=== PATIENT | male | born 1960 | race Caucasian/White ===

== ENCOUNTER 2021-02-09 09:35 | Emergency (ER) | payer OTHER ==
[~2021-02-09 09:35] MED LIST: ASPIRIN CHEWABL81 MG PO; DILTIAZEM 12HR90 MG PO; FENOFIBRATE40 MG PO; FEOSOL325 MG PO; FLOMAX0.4 MG PO; LISINOPRIL-HCT1 EAC2 PO; OXYCODONE-ACET1 EAC1 PO; PERCOCET 7.5/321 TAB PO; PRAVASTATIN SOD80 MG PO; PRILOSEC20 MG PO; ULTRA-LIGHT RO1 EACH XX; XARELTO10 MG PO
[2021-02-09] MEDS ORDERED: DIOVAN40 MG PO (09:59)
[2021-02-09 10:31] LABS: BASOPHIL 0.2 % (0-2); EOSINOPHIL 0.1 % (0-5); HCT 40.7 % (42.0-52.0); HGB 14.1 g/dl (13.2-18.0); LYMPHOCYTE 4.6 % (15-48); MCH 29.6 pg (25.0-31.0); MCHC 34.6 g/dL (32.0-36.0); MCV 85.3 fL (78.0-100.0); MONOCYTE 8.1 % (0-12); MPV 11.9 fL (6.0-9.5); NEUTROPHIL 84.3 % (41-80); NRBC 0.8; PLT 121 K/uL (150-400); RBC 4.77 M/uL (4.70-6.00); RDW 20.7 % (11.5-14.0); WBC 16.8 K/uL (4.0-10.5)
[2021-02-09 10:35] LABS: INR 1.6 (0.9-1.2); PROTHROMBIN TIME 18.1 SECONDS (11.4-13.6)
[2021-02-09 10:36] LABS: PTT 41.7 SECONDS (22.2-34.7)
[2021-02-09 10:47] LABS: ALBUMIN 2.3 g/dL (3.4-5.0); BUN/CREAT RATIO (CALC) 52.2 RATIO; CREATININE 0.69 mg/dL (0.67-1.17); GLOBULIN (CALCULATION) 3.3 g/dL; MAGNESIUM 1.6 mg/dL (1.8-2.4); POTASSIUM 3.5 mmol/L (3.5-5.1); TOTAL PROTEIN 5.6 g/dL (6.4-8.2)
[2021-02-09 10:48] LABS: BILIRUBIN - TOTAL 17.5 mg/dL (0.2-1.0)
[2021-02-09 17:13] LABS: BILIRUBIN 3+ mg/dL (NEGATIVE); BLOOD NEGATIVE Ery/uL (NEGATIVE); CLARITY SLIGHTLY HAZY (CLEAR); COLOR AMBER (YELLOW); GLUCOSE (U) TRACE mg/dL (NORMAL); LEUKOCYTES NEGATIVE Leu/uL (NEGATIVE); NITRITE POSITIVE (NEGATIVE); PROTEIN TRACE (LOW) mg/dL (NEGATIVE); pH 6.5 (5.0-9.0)
[2021-02-09 17:21] LABS: BACTERIA TRACE; URINARY WBC RARE
[2021-02-09 17:22] LABS: AMMONIUM BUIRATE CRYSTALS LARGE
== END 2021-02-09 21:00 | disposition other institution (70) ==
LOC: FER 09:35
PROVIDERS: Emergency Medicine
DX: K72.90 Hepatic failure, unspecified without coma (principal); K83.1 Obstruction of bile duct; D68.9 Coagulation defect, unspecified; E11.9 Type 2 diabetes mellitus without complications; I10 Essential (primary) hypertension; Z20.822 Contact with and (suspected) exposure to COVID-19
CPT/HCPCS: 36415; 80053; 81001; 82140; 83690; 83735; 84484; 85025; 85610; 85730; 93005; J1170; J2405; U0002